=== PATIENT | female | born 1960 | race Caucasian/White ===

== ENCOUNTER 2018-10-30 08:02 | Day surgery (SDC) | payer OTHER ==
[2018-10-30] MEDS ORDERED: PROPOFOL 40 ML (09:33)
[2018-10-30] MEDS ORDERED: LIDOCAINE 100 MG SYRINGE (09:33)
== END 2018-10-30 12:44 | disposition home or self-care (01) ==
LOC: GIL 08:02
DX: R19.4 Change in bowel habit (principal); K64.8 Other hemorrhoids; D12.5 Benign neoplasm of sigmoid colon; K44.9 Diaphragmatic hernia without obstruction or gangrene; K29.50 Unspecified chronic gastritis without bleeding
CPT/HCPCS: 43239; 88305; 88312